=== PATIENT | male | born 1970 | race Two or more races ===

== ENCOUNTER 2017-11-23 18:26 | Emergency (ER) | payer OTHER ==
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
[2017-11-23] MEDS ORDERED: ACETAMINOPHEN 325 MG TAB PO ONE (19:55)
[2017-11-23 22:16] VITALS: BP 109/63
[2017-11-23] MEDS ORDERED: OXYCODONE/APAP 5/325MG PREPACK#4 BTL TAKEHOME ONE (22:56)
== END 2017-11-23 22:14 | disposition home or self-care (01) ==
LOC: EDUNIT#
DX: S06.0X0A Concussion without loss of consciousness, initial encounter (principal); S70.02XA Contusion of left hip, initial encounter; R40.2411 Glasgow coma scale score 13-15, in the field [EMT or ambulance]; V13.4XXA Pedal cycle driver injured in collision with car, pick-up truck or van in traffic accident, initial encounter; Y93.55 Activity, bike riding; Y92.410 Unspecified street and highway as the place of occurrence of the external cause; Y99.8 Other external cause status; M43.02 Spondylolysis, cervical region

== ENCOUNTER → 2018-02-09 | Outpatient (CLI) | payer OTHER | LOC: FIMAGING 08:36 | PROVIDERS: ATTEND Family Medicine | DX: M50.322 Other cervical disc degeneration at C5-C6 level (principal); M48.02 Spinal stenosis, cervical region ==

== ENCOUNTER → 2018-02-21 | Outpatient (CLI) | payer OTHER | LOC: FIMAGING 18:44 | PROVIDERS: ATTEND Family Medicine | DX: M53.82 Other specified dorsopathies, cervical region (principal); M48.02 Spinal stenosis, cervical region ==